=== PATIENT | female | born 1980 | race African-American/Black ===

== ENCOUNTER 2021-09-22 07:52 | Emergency (ER) | payer OTHER, SELFPAY ==
--- NOTE | ~2021-09-22 | XR_ITS ---
EXAMINATION: XR KNEE, LEFT CLINICAL INFORMATION: Pain after trauma COMPARISON: None TECHNIQUE: Four views of the left knee. FINDINGS: No fracture, dislocation or destructive process. No joint effusion. XR/XR knee LT 4V IMPRESSION: Unremarkable examination. No fracture seen.
[2021-09-22 08:30] VITALS: BP 119/76; PULSE 83; RESP 18; TEMP 36.1; O2SAT 97; BMI 27.4
--- NOTE | 2021-09-22 10:19 | ED_ITS ---
HPI - Extremity Injury (Lower) General Chief Complaint: Extremity Injury, Lower Stated Complaint: broken leg? Time Seen by Provider: 09/22/21 10:18 History of Present Illness HPI Narrative: Patient complains of left knee pain after falling and banging it on something as well as twisting it yesterday, no other injury no other complaint Related Data Previous Rx's Medication Instructions Recorded acetaminophen 500 mg tablet 1,000 mg PO QID PRN #30 tab 09/22/21 ibuprofen 600 mg tablet 600 mg PO Q6H PRN #20 tab 09/22/21 oxycodone 5 mg tablet 5 mg PO Q6H PRN #14 tab 09/22/21 Allergies Allergy/AdvReac Type Severity Reaction Status Date / Time No Known Allergies Allergy Verified 09/22/21 08:49 Review of Systems Review of Systems: Positive for left knee pain Negatives are no headache no head injury no loss of consciousness no neck pain no numbness weakness or tingling no back pain no shortness of breath no abdominal pain no other extremity pains Yes all other systems are reviewed and are negative PMFSH Past Medical History Source: nursing notes reviewed Physical Exam Vital Signs: Vital Signs: Last Vital Signs Temp 97 F 09/22/21 08:30 Pulse 83 09/22/21 08:30 Resp 18 09/22/21 08:30 BP 119/76 09/22/21 08:30 Pulse Ox 97 09/22/21 08:30 BMI result Body Mass Index 27.4 General appearance no acute distress Head is normocephalic atraumatic Neck is supple nontender Chest wall nontender Extremities the left knee had tenderness just below the patella the patient could not extend the lower leg There was no tenderness over the quadriceps tendon, there was mild swelling and neurovascular intact distal with normal skin Other extremities normal Course Course Course Narrative: Patient was unable to do a straight leg raise, there was no obvious defect of quadriceps or patellar tendons, but there was tenderness over the patellar tendon Multiple efforts to get her to lift leg were not successful but she also was in a lot of pain at a not clear if there was a tendon injury or was just too painful I called orthopedic physician career services assistant miki who said she can see her early next week for re-evaluation so she will follow with orthopedics next week Discharge Plan Discharge Clinical Impression: Patellar tendon rupture, Left knee sprain Patient Disposition: Home, Self-Care Additional Instructions: Because you could not do a straight leg raise and had tenderness over your patellar tendon there is a possibility that you tore the patellar tendon I spoke with orthopedic physician career services assistant Miki who said she would see you ne xt week Wear the knee immobilizer and crutches Return any time any concerns Prescriptions: New ibuprofen 600 mg tablet 600 mg PO Q6H PRN (Reason: pain) Qty: 20 RF: 0 acetaminophen 500 mg tablet 1,000 mg PO QID PRN (Reason: pain) Qty: 30 RF: 0 oxycodone 5 mg tablet 5 mg PO Q6H PRN (Reason: pain) Qty: 14 RF: 0 Referrals: Alisson Livingston PA-C [Physician Sales And Marketing Administrator] - 5 days (Question patellar tendon injury) Interventions: ED Discharge Assessment Last Done: 09/22/21 10:39 Discharge Date/Time: 09/22/21 10:40
== END 2021-09-22 10:40 | disposition home or self-care (01) ==
PROVIDERS: Emergency Provider Emergency Medicine
DX: S86.912A Strain of unspecified muscle(s) and tendon(s) at lower leg level, left leg, initial encounter (principal); X50.1XXA Overexertion from prolonged static or awkward postures, initial encounter; Y93.9 Activity, unspecified; Y92.9 Unspecified place or not applicable; Y99.9 Unspecified external cause status
CPT/HCPCS: 73564; 99283

== ENCOUNTER → 2021-09-27 11:00 | Outpatient (BNVA) | payer OTHER, SELFPAY | PROVIDERS: Visit Provider Physician Assistant | DX: M23.92 Unspecified internal derangement of left knee (principal) | CPT/HCPCS: 99202 ==

== ENCOUNTER 2021-10-06 19:43 | Outpatient (REF) | payer OTHER, SELFPAY ==
--- NOTE | ~2021-10-06 | MR_ITS ---
EXAMINATION: MR KNEE WITHOUT CONTRAST, LEFT CLINICAL INFORMATION: Knee pain, osteoarthritis COMPARISON: Radiographs 09/22/2021 TECHNIQUE: MRI of the knee without contrast was performed using routine sequences on a high-field scanner. FINDINGS: MENISCI: Medial Meniscus: Intact Lateral Meniscus: No meniscal tear. There is tearing of the inferior popliteomeniscal fascicle. LIGAMENTS: Cruciate: Complete or near complete tear of the proximal ACL with torn fibers displaced anteriorly. The posterior cruciate ligament is intact. Collateral: Intact EXTENSOR MECHANISM: Intact ARTICULAR CARTILAGE/BONE: Patellofemoral Compartment: Focal cartilage signal heterogeneity and surface irregularity of the medial patellar facet. Medial Compartment: Articular cartilage defect. Mild bone bruises at the posterior most tibia and peripheral aspect of the femoral condyle medially. Lateral Compartment: There is an impaction fracture of the tibia posteriorly with irregularity and small focal defect of the overlying articular cartilage. JOINT FLUID AND BURSAE: Moderate hemarthrosis. MR/MR knee LT wo con IMPRESSION: Complete or near complete proximal ACL tear. Impaction fracture of the lateral tibial plateau and a moderate hemarthrosis. No meniscal tear.
== END 2021-10-06 19:44 | disposition home or self-care (01) ==
LOC: HO.MRI 19:43
PROVIDERS: Visit Provider Physician Assistant
DX: M17.12 Unilateral primary osteoarthritis, left knee (principal)
CPT/HCPCS: 73721

== ENCOUNTER 2021-10-20 07:50 | Emergency (ER) | payer OTHER, SELFPAY ==
--- NOTE | ~2021-10-20 | XR_ITS ---
EXAMINATION: CR X-RAY KNEE/TIBIA/FIBULA LEFT CLINICAL INFORMATION: Left knee pain status post injury, ACL tear. COMPARISON: MRI of the left knee dated 10/06/2021, left knee radiographs dated 09/22/2011. TECHNIQUE: 4 views of the left knee and 2 views of the left tibia/fibula were obtained. FINDINGS: No significant tricompartmental degenerative joint changes are seen. There is no acute fracture. The tibia and fibula are intact. The left ankle joint is intact. There is a small to moderate suprapatellar joint effusion. The soft tissues are unremarkable. XR/XR knee LT 4V IMPRESSION: 1. No acute fracture or significant degenerative changes. 2. Small to moderate suprapatellar effusion has increased since the previous left knee radiographs but is similar to the more recent MRI.
--- NOTE | ~2021-10-20 | XR_ITS ---
EXAMINATION: CR X-RAY KNEE/TIBIA/FIBULA LEFT CLINICAL INFORMATION: Left knee pain status post injury, ACL tear. COMPARISON: MRI of the left knee dated 10/06/2021, left knee radiographs dated 09/22/2011. TECHNIQUE: 4 views of the left knee and 2 views of the left tibia/fibula were obtained. FINDINGS: No significant tricompartmental degenerative joint changes are seen. There is no acute fracture. The tibia and fibula are intact. The left ankle joint is intact. There is a small to moderate suprapatellar joint effusion. The soft tissues are unremarkable. XR/XR tibia fibula LT 2V IMPRESSION: 1. No acute fracture or significant degenerative changes. 2. Small to moderate suprapatellar effusion has increased since the previous left knee radiographs but is similar to the more recent MRI.
[2021-10-20 07:52] VITALS: BP 115/77; PULSE 82; RESP 16; TEMP 37.1; O2SAT 100; BMI 27.1
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
[2021-10-20] MEDS: oxyCODONE HCl Immed Release 5 MG TABLET PO (08:36)
[2021-10-20] MEDS: Ibuprofen 600 MG TABLET PO (08:36)
--- NOTE | 2021-10-20 08:39 | PC.NURSE ---
PT EVALUATED BY PROVIDER. XRAYS COMPLETED. PT TEARFUL, C/O 10/10 KNEE PAIN. MEDICATED WITH MOTRIN AND OXYCODONE FOR PAIN. PT AWARE AND AGREEABLE TO PLAN OF CARE.
[2021-10-20] MEDS: Acetaminophen 325 MG TABLET 975 MG PO (09:54)
== END 2021-10-20 10:04 | disposition home or self-care (01) ==
PROVIDERS: Emergency Provider Emergency Medicine
DX: M23.92 Unspecified internal derangement of left knee (principal); M25.462 Effusion, left knee; S83.512D Sprain of anterior cruciate ligament of left knee, subsequent encounter; X58.XXXD Exposure to other specified factors, subsequent encounter
CPT/HCPCS: 73564; 73590; 99284

== ENCOUNTER → 2021-10-22 09:44 | Outpatient (BNVA) | payer OTHER, SELFPAY | PROVIDERS: Visit Provider Physician Assistant | DX: S83.512D Sprain of anterior cruciate ligament of left knee, subsequent encounter (principal) | CPT/HCPCS: 99212 ==

== ENCOUNTER → 2021-11-17 12:54 | Outpatient (BNVA) | payer OTHER, SELFPAY | PROVIDERS: Visit Provider Physician Assistant | DX: S83.512D Sprain of anterior cruciate ligament of left knee, subsequent encounter (principal) | CPT/HCPCS: 99212 ==

== ENCOUNTER → 2021-12-09 12:36 | Outpatient (BNVA) | payer OTHER, SELFPAY | PROVIDERS: PCP Family Medicine; Visit Provider Physician Assistant | DX: Z01.818 Encounter for other preprocedural examination (principal); S83.512A Sprain of anterior cruciate ligament of left knee, initial encounter | CPT/HCPCS: 99212 ==

== ENCOUNTER 2021-12-14 11:46 | Day surgery (SDC) | payer OTHER, SELFPAY ==
[2021-12-09 11:26] VITALS: BMI 26.6
--- NOTE | 2021-12-13 10:27 | P.CONAN_ITS ---
Documented by User: Grecia Avery NP 12/13/21 10:27 HPI - Anesthesia Eval Consult details Narrative: 41yo F for Left ACL Allograft PMFSH Active Problems Active Problems: All Active Problems (Updated 10/20/21 @ 09:42 by Oly Bo CNP) Internal derangement of left knee (Acute) Left ACL tear (Acute) Past Medical History Medical History Anxiety Asthma Surgical History Surgical History Hx of cholecystectomy Social History Social History (Updated 12/09/21 @ 12:46 by Kalani Rowe CMA) Are you a primary child care worker to a significant other at home: No Do you presently have visiting nurse or other home services: No Patient Tobacco Use Status: Never used Tobacco Use of substances other than those prescribed or required for medical reasons: Yes Substance Use Type: Marijuana Substance Use Frequency: Daily Have you been hit, kicked, punched, or otherwise hurt by someone within the past year? 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 Allergies Allergy/AdvReac Type Severity Reaction Status Date / Time No Known Allergies Allergy Verified 12/09/21 12:45 Home Medications Medication Instructions Recorded Confirmed Last Taken Type albuterol sulfate 90 mcg/actuation 1 puff PO Q4H PRN 12/09/21 12/09/21 Unknown History aerosol inhaler (ProAir HFA) fluoxetine 20 mg capsule 2 cap PO DAILY 12/09/21 12/09/21 Unknown History trazodone 50 mg tablet 1 tab PO BEDTIME 12/09/21 12/09/21 Unknown History Exam Exam Date and Time: December 13, 2021 1027 Height,Weight and Vital Signs: Height 5 ft 4 in Weight 70.307 kg Assessment and Plan Assessment Anesthesia Assessment: Chart Reviewed Documented by User: Blaze Grayson MD 12/14/21 15:04 [facility] Past Medical History Medical History Anxiety Asthma Family History Family history of problems with anesthesia: No Surgical History Surgical History Hx of cholecystectomy History of Problems with Anesthesia: No Social History Social History (Updated 12/09/21 @ 12:46 by Kalani Rowe CMA) Are you a primary child care worker to a significant other at home: No Do you presently have visiting nurse or other home services: No Patient Tobacco Use Status: Never used Tobacco Use of substances other than those prescribed or required for medical reasons: Yes Substance Use Type: Marijuana Substance Use Frequency: Daily Have you been hit, kicked, punched, or otherwise hurt by someone within the past year? 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 Allergies Allergy/AdvReac Type Severity Reaction Status Date / Time No Known Allergies Allergy Verified 12/09/21 12:45 Home Medications Medication Instructions Recorded Confirmed Last Taken Type albuterol sulfate 90 mcg/actuation 1 puff PO Q4H PRN 12/09/21 12/09/21 Unknown History aerosol inhaler (ProAir HFA) fluoxetine 20 mg capsule 2 cap PO DAILY 12/09/21 12/09/21 Unknown History trazodone 50 mg tablet 1 tab PO BEDTIME 12/09/21 12/09/21 Unknown History Exam Airway Mallampati Class: II TM Dist: >3cm Neck ROM: Full Loose/Missing/Broken Teeth: Yes Assessment and Plan Assessment Anesthesia Assessment: Anesthesia Plan Discussed Final Anesthetic Review Family History of Problems with Anesthesia: No History of Problems with Anesthesia: No NPO: Yes ASA Class: II Final Preanesthetic Review: No Changes in Pt Med Stat, Meds/Allgs Chart Reviewed, Consent Obtained/Reviewed and Anes Risks/Benef Reviewed Patient Risk: Low Procedure Risk: Low Anesthetic Plan Anesthetic Plan: GA and Regional Block Disposition: Standard PACU
[2021-12-14] VITALS (19 sets, daily range): BP systolic 113–146; BP diastolic 71–90; PULSE 64–104; RESP 7–18; TEMP 36.3–36.6; O2SAT 94–99
--- NOTE | 2021-12-14 07:50 | MHC.SHP ---
Pre-Procedural Eval Section A Date of Service: 12/14/21 The patient is an INPATIENT: No Changes since office visit: Yes Patient answered all questions; No Cold of Flu in the past 2 weeks, No New Medical Problems and No Changes in Medication The History & Physical has been completed within 30 days and I have reviewed it.: Yes Section B Chief Complaint: sprained knee Allergies: Allergies Allergy/AdvReac Type Severity Reaction Status Date / Time No Known Allergies Allergy Verified 12/09/21 12:45 Plan I have reviewed the history and physical and performed a pertinent physical examination on my patient. No changes have occurred unless specified.
[2021-12-14 12:22] LABS: UPreg QC Valid YES; Urine Pregnancy NEGATIVE (NEGATIVE)
[2021-12-14] MEDS: Lactated Ringers 1,000 ML 100 ML IVCONT (12:25)
--- NOTE | 2021-12-14 14:37 | P.BOP_ITS ---
Brief Operative Note Date of Service: 12/14/21 Pre-op diagnosis: Left ACL tear Post-op diagnosis: same Procedure: Left ACL reconstruction with Allograft Implants: [employer]igsby [employer]hew ACL endobutton and 10 mmx 25 mm tibial interference screw and 10mm Hamstring Allograft Surgeon: Christ Mckeon MD Anesthesia: GETA and regional Was an Airline Reservation Agent used for this Procedure?: Yes Airline Reservation Agent: Alisson Livingston Estimated blood loss (mL): 25 Tourniquet time (min): 65 IV fluids (mL): 1,000 Pathology: none sent Condition: stable Disposition: PACU
[2021-12-14] MEDS: HYDROmorphone HCl 0.5 MG/0.5 ML SYRINGE 0.25 MG IVPUSH ×3 (15:35→16:02)
[2021-12-14] MEDS: oxyCODONE HCl Immed Release 5 MG TABLET PO (15:37)
[2021-12-14] MEDS: ondansetron HCL 4 MG/2 ML VIAL IVPUSH (18:02)
--- NOTE | 2021-12-14 18:03 | PC.NURSE ---
upon dressing and transferring to wheelchair patient reports nausea. ivf reinitiated. medicated for nausea.
--- NOTE | 2021-12-22 07:49 | W.PM.OPN ---
Operative Note Operative Note Date of Service: 12/15/21 Narrative: Pre-op diagnosis: Left ACL tear Post-op diagnosis: same Procedure: Left ACL reconstruction with Allograft Implants: Grigsby [employer] Nephew ACL endobutton and 10 mmx 25 mm tibial interference screw and 10mm Hamstring Allograft Surgeon: Christ Mckeon MD Anesthesia: GETA and regional Was an Operations Support Analyst used for this Procedure?: Yes Operations Support Analyst: Alisson Livingston Estimated blood loss (mL): 25 Tourniquet time (min): 65 IV fluids (mL): 1,000 Pathology: none sent Condition: stable Disposition: PACU Procedure in detail: Patient was brought to the operating room placed supine on the arthroscopic table and prepped and draped in standard sterile fashion. A time-out was called to identify proper site proper procedure proper surgeon and IV antibiotics per weight were administered. She has a 2+ Frank's and a + pivot shift. I began by exsanguinating the limb and insufflating tourniquet to 300 mm Hg. Then made a standard anterolateral stab incision. The knee was insufflated with water and 30 degree arthroscope was placed. There was grade 1 fibrillations of the patella but overall suprapatellar pouch was clean and the gutters were clean. I descended into the medial compartment where I made a far medial portal under direct visualization. There was an intact medial meniscus and the cartilage surfaces were normal. There was a complete tear of the ACL with an empty wall sign. The lateral meniscus and cartilage surfaces were normal. I used a combination of biter shaver and cautery to remove the ACL stump. On the back table the hamstring allograft was prepared, placed on tension for 10 minutes and measured to be 10 mm. During the graft preparation I identified the ACL footprint and , via the medial portal drilled my femoral tunnel approximately 7 mm from the back wall and 5 mm from the distal articular surface. I started wtih a guide wire, then a 10 mm reamer unicortically then a 4 mm drill through the lateral femroal cortex. I then drilled my tibial tunnel through the tibial footprint at a 55deg angle from an incision just medial to the tibial tubercle. My graft was then passed through the tibia and femur. The endobutton was flipped on the lateral femoral cortex. The knee was then cycled on tension and then, in hyper-extension, the tibial interference screw was placed. I was satisfied with the graft position and the tension and stability of the knee. There was a negative pivot shift. I then removed all instrumentation and closed the portals with skin glue. Patient was then placed in sterile dressing, a hinged knee brace locked in extension and then extubated brought recovery room stable condition. There were no known complications.
--- NOTE | 2021-12-24 15:51 | P.OP_ITS ---
Operative Note Operative Note Date of Service: 12/24/21 Narrative: Date of Service: 12/14/21 Pre-op diagnosis: Left ACL tear Post-op diagnosis: same Procedure: Left ACL reconstruction with Allograft Implants: Grigsby [employer] Nephew ACL endobutton and 10 mmx 25 mm tibial interference screw and 1 0mm Hamstring Allograft Surgeon: Christ Mckeon MD Anesthesia: GETA and regional Was an Line Technician used for this Procedure?: Yes Line Technician: Alisson Livingston Estimated blood loss (mL): 25 Tourniquet time (min): 65 IV fluids (mL): 1,000 Pathology: none sent Condition: stable Disposition: PACU
== END 2021-12-14 19:13 | disposition home or self-care (01) ==
PROVIDERS: Nurse Practitioner; Visit Provider Orthopaedic Surgery
PROC: (CPT 27428; principal; 2021-12-14 13:50)
DX: S83.512A Sprain of anterior cruciate ligament of left knee, initial encounter (principal); M25.362 Other instability, left knee; M25.462 Effusion, left knee; X58.XXXA Exposure to other specified factors, initial encounter; Y93.9 Activity, unspecified; Y92.9 Unspecified place or not applicable; Y99.8 Other external cause status; J45.909 Unspecified asthma, uncomplicated; F41.1 Generalized anxiety disorder; Z79.899 Other long term (current) drug therapy; F12.90 Cannabis use, unspecified, uncomplicated
CPT/HCPCS: 29888; 81025; C1713; C1769; J0131; J0171; J0690; J1100; J1170; J1790; J1885; J2250; J2405; J2550; J3010

== ENCOUNTER → 2021-12-20 10:34 | Outpatient (BNVA) | payer OTHER, SELFPAY | PROVIDERS: Visit Provider Physician Assistant | DX: S83.512D Sprain of anterior cruciate ligament of left knee, subsequent encounter (principal) | CPT/HCPCS: 99212 ==

== ENCOUNTER 2022-01-14 09:00 | Outpatient (RCR) | payer OTHER, SELFPAY ==
--- NOTE | 2021-12-20 14:02 | MHC.PT.EP ---
[facility] [place] [facility] [place] Office [place] Office [address] [phone] F: [phone] F: [phone] F: [phone] F: [phone] Physical Therapy Plan of Care Date of Evaluation: Date of Surgery: 12/14/21 Diagnosis: L ACL RECONSTRUCTION (KP) Assessment: DONALD IS A PLEASANT 41 YO FEMALE S/P ACL REPAIR WITH HAMSTRING ALLOGRAPH (DOS #5). SHE PRESENTS WITH EXPECTED IMPAIRMENTS OF DECREASED KNEE ROM AND STRENGTH, INCREASED EDEMA AND PAIN, ALTERED GAIT AND BALANCE. FUNCTIONAL LIMITATIONS INCLUDE DECREASED ABILITY TO PERFORM WALKING, STATIC STANDING, STAIR NAVIGATION. SHE REPORTS DECREASED ABILITY TO PERFORM SQUATTING, LIFTING FROM GROUND, WALKING ON UNEVEN SURFACES, PARTICIPATING IN HOMEMAKING AND SELF CARE TASKS, PARTICIPATING IN COMMUNITY AND RECREATIONAL ACTIVITIES AND DISRUPTED SLEEP. Pt IS A GOOD CANDIDATE FOR SKILLED PT DUE TO AGE, POTENTIAL REMEDIATION OF IMPAIRMENTS, TYPICAL DISEASE/CONDITION PROGRESSION AND PROGNOSIS, COMORBIDITIES, AND MOTIVATION. Pt WOULD BENEFIT FROM TAILORED PROGRAM OF THERAPEUTIC ACTIVITIES, FUNCTIONAL TRAINING, GAIT TRAINING, POSTURAL EDUCATION, NEUROMUSCULAR RE-EDUCATION, AND MODALITIES NEEDED. 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 Manual therapy to restore motion and function. Therapeutic exercise to improve strength and flexibility. Neuromuscular re-education for posture and balance. Therapeutic activities to return to functional activities of daily living. Electronically signed by: LUIS RECIO PT, DPT Please sign and return to therapist. Thank you for your referral.
--- NOTE | 2022-02-18 08:36 | MHC.PT.DC ---
[facility] [place] Office [place] Office [place] Office [address]ma [address] 140 [facility] [phone] F: [phone] F: [phone] F: [phone] F: [phone] Physical Therapy Discharge Report Diagnosis: L ACL RECONSTRUCTION (KP) Date of Surgery: 12/14/21 Date of Evaluation: 12/20/21 Date of Discharge: 02/18/22 Treatments to Date: 5 Cancellations to Date: 0 No Shows to Date: 0 Discharge Status: Patient Elected to Stop Visit Non-compliance Discharge Summary: Pt no showed for last scheduled visit, did not return voicemail messages. Current status unknown. As we have not heard from her in over 30 days we are DCing at this time from our surface. Electronically signed by: Dulce Fisher PT, DPT Please sign and return to therapist. Thank you for your referral.
== END 2022-02-18 08:37 | disposition home or self-care (01) ==
LOC: HO.PT 09:00
PROVIDERS: Visit Provider Physician Assistant
DX: S83.512D Sprain of anterior cruciate ligament of left knee, subsequent encounter (principal)
CPT/HCPCS: 97110; 97112; 97161

== ENCOUNTER → 2022-01-17 09:31 | Outpatient (BNVA) | payer OTHER, SELFPAY | PROVIDERS: Visit Provider Physician Assistant | DX: S83.512D Sprain of anterior cruciate ligament of left knee, subsequent encounter (principal) | CPT/HCPCS: 99212 ==

== ENCOUNTER 2022-08-22 11:26 | Emergency (ER) | payer OTHER, SELFPAY ==
--- NOTE | ~2022-08-22 | XR_ITS ---
EXAMINATION: XR CHEST CLINICAL INFORMATION: Cough. COMPARISON: None TECHNIQUE: 2 views of the chest were obtained. FINDINGS: No significant abnormality is noted involving the heart, lungs, mediastinum, bony thorax or soft tissues. XR/XR chest 2V IMPRESSION: No acute cardiopulmonary process.
--- NOTE | 2022-08-22 12:41 | ED_ITS ---
HPI - General Adult General Chief complaint: Nausea/Vomiting/Diarrhea Stated complaint: Fever/Diarrhea Related Data Home Medications Medication Instructions Recorded Confirmed albuterol sulfate 90 mcg/actuation 1 puff PO Q4H PRN wheezing 12/09/21 12/09/21 aerosol inhaler (ProAir HFA) fluoxetine 20 mg capsule 2 cap PO DAILY 12/09/21 12/09/21 trazodone 50 mg tablet 1 tab PO BEDTIME 12/09/21 12/09/21 Previous Rx's Medication Instructions Recorded ibuprofen 600 mg tablet 600 mg PO TID PRN pain #20 tabs 10/20/21 morphine 15 mg tablet,extended 15 mg PO Q12H 3 days #6 tabs 12/14/21 release (MS Contin) naproxen 500 mg tablet 500 mg PO BID 3 weeks #42 tabs 12/14/21 oxycodone-acetaminophen 5 mg-325 1 tab PO Q4-6H PRN pain 7 days #42 12/14/21 mg tablet (Percocet) tabs hydrocodone 5 mg-acetaminophen 325 1 tab PO Q4-6H PRN pain 7 days #42 12/20/21 mg tablet tabs ondansetron HCl 4 mg tablet 4 mg PO Q6H PRN nausea and 12/20/21 vomiting 7 days #28 tabs Allergies Allergy/AdvReac Type Severity Reaction Status Date / Time No Known Allergies Allergy Verified 01/17/22 09:36 [facility] Past Medical History Medical History Anxiety Asthma Surgical History Hx of cholecystectomy Social History Social History Are you a primary customer care assistant to a significant other at home: No Do you presently have visiting nurse or other home services: No Patient Tobacco Use Status: Never used Tobacco Substance Use Type: Marijuana Advance Directives: No Current occupational status: employed 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 Reports fever of 100 at home. Also with cough and URI symptoms. Vaccinated for COVID and Flu. No known sick contacts. Low grade temp 99.4 here after tylenol at home. Other VSS. Will get basic labs, Flu and COVID. Reevaluation(s) Reevaluation #1: Patient eloped Discharge Plan Discharge Clinical Impression: Abdominal pain Patient Disposition: Elopement Prescriptions: No Action ibuprofen 600 mg tablet 600 mg PO TID PRN (Reason: pain) Qty: 20 0RF trazodone 50 mg tablet 1 tab PO BEDTIME albuterol sulfate [ProAir HFA] 90 mcg/actuation HFA aerosol inhaler 1 puff PO Q4H PRN (Reason: wheezing) fluoxetine 20 mg capsule 2 cap PO DAILY oxycodone-acetaminophen [Percocet] 5-325 mg tablet 1 tab PO Q4-6H PRN (Reason: pain) 7 Days Qty: 42 0RF morphine [MS Contin] 15 mg tablet extended release 15 mg PO Q12H 3 Days Qty: 6 0RF Rx Instructions: Partial Fill upon patient request naproxen 500 mg tablet 500 mg PO BID 21 Days Qty: 42 1RF ondansetron HCl 4 mg tablet 4 mg PO Q6H PRN (Reason: nausea and vomiting) 7 Days Qty: 28 0RF hydrocodone-acetaminophen 5-325 mg tablet 1 tab PO Q4-6H PRN (Reason: pain) 7 Days Qty: 42 0RF Rx Instructions: Partial Fill upon patient request. Interventions: LWBS Worksheet Last Done: 08/22/22 16:36 Discharge Date/Time: 08/22/22 22:20
[2022-08-22 12:43] VITALS: BP 108/82; PULSE 80; RESP 18; TEMP 37.4; O2SAT 96; BMI 26.5
== END 2022-08-22 22:20 | disposition left against medical advice (07) ==
PROVIDERS: Emergency Provider Emergency Medicine
DX: R10.9 Unspecified abdominal pain (principal); R50.9 Fever, unspecified; R05.9 Cough, unspecified
CPT/HCPCS: 71046; 99281; 99283

== ENCOUNTER → 2023-04-04 16:09 | Outpatient (RCR) | payer OTHER, SELFPAY ==
--- NOTE | 2021-11-05 12:40 | MHC.PT.EP ---
[facility] [place] [facility] [place] [facility] [place] [facility] [address] Vilma Monroy [address] [phone] F: [phone] F: [phone] F: [phone] F: [phone] Physical Therapy Plan of Care Date of Evaluation: Date of Surgery: NA Diagnosis: L ACL TEAR Assessment: Pt IS 41 YO F REFERRED TO PT FROM ORTHO ([facility]) WITH TORN L ACL AND TIBIAL PLATEAU FX. Pt REPORTS INIT INJURY 09/19/21 WITH SECONDARY FALL 10/19/21 WITH REPORT OF FURTHER PAIN/SWELLING . FU XRAY SHOWED NO CHANGES FROM INIT. NO SECONDARY MRI DONE (?FURTHER DAMAGE TO ACL OR OTHER STRUCTURES). PRESENTS WITH KNEE BRACE BUT NO CRUTCHES WITH ANTALGIC GT, LIMITED KNEE ROM AND LIMITED LE STRENGTH. Pt WITH PAIN AND FEELING OF INSTABILITY. SLIGHT SWELLING. Pt DID NOT GET TO PT IN TIMELY MANNER INITIALLY (SCHEDULING ISSUE) SO SHOULD BENEFIT FROM 3X/WK AT THIS TIME TO HELP IMPROVE ROM AND STRENGTH IN PREP FOR SURGERY INDICATED Frequency and Duration: The patient will be seen 3X/WK X 3 WKS THEN 2X/WK X 4-6 MORE WEEKS PER ORTHO FU Short Term Goals: 1. INCREASED AWARENESS KNEE CARE 2. IMPROVED GT PATTERN WITH BRACE AND 2 CRUTCHES>1CRUTCH>NO AD 3. INCREASED L KNEE ROM 0-100 4. ABLE TO PERF SLR 20 R ON L Sub Plant Manager Goals: 1. DECREASED L KNEE PAIN AT LEAST 50% WITH ADLS 2. I HEP 3. INCREASED L KNEE ROM 0-125 4. L LE STRENGTH 4/5 T/O Treatment Plan: Modalities to reduce pain, spasms and effusion. Manual therapy to restore motion and function. Therapeutic exercise to improve strength and flexibility. Neuromuscular re-education for posture and balance. Therapeutic activities to return to functional activities of daily living. Electronically signed by: NAIMA MIRANDA PT Please sign and return to therapist. Thank you for your referral.
--- NOTE | 2023-04-04 16:09 | MHC.PT.DC ---
[facility] [place] Office [place] Office [place] Office [address]ma [address] 140 [facility] [phone] F: [phone] F: [phone] F: [phone] F: [phone] Physical Therapy Discharge Report Diagnosis: L ACL TEAR Date of Surgery: NA Date of Evaluation: 11/05/21 Date of Discharge: 04/04/23 Treatments to Date: 9 Cancellations to Date: No Shows to Date: Discharge Status: Achieved Goals Independent with HEP Discharge Summary: Pt to return after ACL surgery Electronically signed by: NAIMA MIRANDA PT Please sign and return to therapist. Thank you for your referral.
== END | disposition home or self-care (01) ==
LOC: HO.PT 11-05 07:51
PROVIDERS: Visit Provider Physician Assistant
DX: S83.512D Sprain of anterior cruciate ligament of left knee, subsequent encounter (principal)
CPT/HCPCS: 97110; 97116; 97140; 97162; 97530; 97535

== ENCOUNTER 2023-10-29 08:19 | Emergency (ER) | payer OTHER, SELFPAY ==
--- NOTE | ~2023-10-29 | XR_ITS ---
EXAMINATION: XR FOOT, RIGHT XR FOOT, LEFT CLINICAL INFORMATION: Bilateral toe pain, redness, and swelling. COMPARISON: None. TECHNIQUE: AP, oblique, and lateral views of the right and left foot. FINDINGS: Right foot: No acute fracture or dislocation. No joint space narrowing or marginal osteophytes. No osseous erosion. No abnormal soft tissue calcification. Left foot: No acute fracture or dislocation. No joint space narrowing or marginal osteophytes. No osseous erosion. No abnormal soft tissue calcification. XR/XR foot LT min 3V IMPRESSION: RIGHT FOOT: Unremarkable examination. LEFT FOOT: Unremarkable examination.
--- NOTE | ~2023-10-29 | XR_ITS ---
EXAMINATION: XR FOOT, RIGHT XR FOOT, LEFT CLINICAL INFORMATION: Bilateral toe pain, redness, and swelling. COMPARISON: None. TECHNIQUE: AP, oblique, and lateral views of the right and left foot. FINDINGS: Right foot: No acute fracture or dislocation. No joint space narrowing or marginal osteophytes. No osseous erosion. No abnormal soft tissue calcification. Left foot: No acute fracture or dislocation. No joint space narrowing or marginal osteophytes. No osseous erosion. No abnormal soft tissue calcification. XR/XR foot RT min 3V IMPRESSION: RIGHT FOOT: Unremarkable examination. LEFT FOOT: Unremarkable examination.
[2023-10-29 08:21] VITALS: BP 145/90; PULSE 105; RESP 16; TEMP 36.4; O2SAT 98; BMI 23.5
[2023-10-29 08:52] LABS: MANUAL DIFF FLAG NO
[2023-10-29 08:53] LABS: Basophils Percent Auto 0.3 % (0-2); Eosinophils Percent Auto 0.1 % (0-4); Hemoglobin 11.5 g/dl (12.0-16.0); Imm Gran Abs Auto 0.02 X10*3/uL (0.00-0.03); Imm Gran Pct Auto 0.2 % (0.0-0.4); Lymphocytes Percent Auto 25.4 % (20-40); Mean Corpuscular HGB Conc 32.9 g/dl (31.0-35.0); Mean Corpuscular Hemoglobin 27.4 pg (27.0-33.0); Mean Corpuscular Volume 83.5 fL (80.0-98.0); Mean Platelet Volume 9.1 fL (9.4-12.3); Monocytes Absolute Auto 0.7 X10*3/uL (0.1-1.2); Neutrophils Absolute Auto 7.9 x10*3/uL (2.0-8.3); Platelet Count 255 X10*3/uL (160-400); Red Blood Count 4.19 X10*6/uL (4.20-5.50); Red Cell Distribution Width 13.9 % (11.0-16.0); White Blood Count 11.6 X10*3/uL (4.8-10.8)
[2023-10-29 09:11] LABS: Anion Gap 11 (12-20); Blood Urea Nitrogen 16 mg/dL (9-16); Calcium 9.3 mg/dL (8.4-10.2); Carbon Dioxide 30 mmol/L (22-29); Chloride 103 mmol/L (96-108); Creatinine Clr Calc Pharmacy 72.6; Estimated Glomerular Filt Rate > 60; Glucose Random 100 mg/dL (60-115); Potassium 3.3 mmol/L (3.3-5.1); Sodium 141 mmol/L (135-145)
[2023-10-29 09:13] LABS: Uric Acid 4.1 mg/dL (2.4-5.7)
--- NOTE | 2023-10-29 09:34 | ED_ITS ---
HPI - Extremity Problem General Chief complaint: Extremity Problem Stated complaint: Pain in toes Time Seen by Provider: 10/29/23 09:01 Source: patient Mode of arrival: ambulatory Limitations: no limitations History of Present Illness HPI Narrative: 43 year old female with pmhx significant for psoriasis and psoriatic arthritis presents to the ED today for evaluation of atraumatic toe pain x1 day. Reports onset of pain to all 10 toes beginning yesterday. Denies trauma or injury to the toes/feet. Admits that this has happened in the past however has never been bad enough to come to the ED. She has not been taking any OTC medications for this at home. Patient admits she has a history of psoriatic arthritis. States she stopped taking her medications months ago because I don't want to take all those medications . She has not followed up with her PCP or jinriksha driver regarding this. Denies fever, chills, dizziness, N/V, diarrhea, rash, other joint pain. Denies IVDU. Denies hx of diabetes. Related Data Home Medications Medication Instructions Recorded Confirmed albuterol sulfate 90 mcg/actuation 1 puff PO Q4H PRN wheezing 12/09/21 12/09/21 aerosol inhaler (ProAir HFA) fluoxetine 20 mg capsule 2 cap PO DAILY 12/09/21 12/09/21 trazodone 50 mg tablet 1 tab PO BEDTIME 12/09/21 12/09/21 Previous Rx's Medication Instructions Recorded ibuprofen 600 mg tablet 600 mg PO TID PRN pain #20 tabs 10/20/21 morphine 15 mg tablet,extended 15 mg PO Q12H 3 days #6 tabs 12/14/21 release (MS Contin) naproxen 500 mg tablet 500 mg PO BID 3 weeks #42 tabs 12/14/21 oxycodone-acetaminophen 5 mg-325 1 tab PO Q4-6H PRN pain 7 days #42 12/14/21 mg tablet (Percocet) tabs hydrocodone 5 mg-acetaminophen 325 1 tab PO Q4-6H PRN pain 7 days #42 12/20/21 mg tablet tabs ondansetron HCl 4 mg tablet 4 mg PO Q6H PRN nausea and 12/20/21 vomiting 7 days #28 tabs naproxen 500 mg tablet 500 mg PO Q8-12H PRN pain (scale 10/29/23 score 4-6) #20 tabs oxycodone 5 mg capsule 5 mg PO Q8H PRN pain (scale score 10/29/23 7-10) #4 caps prednisone 50 mg tablet 50 mg PO DAILY 5 days #5 tabs 10/29/23 Allergies Allergy/AdvReac Type Severity Reaction Status Date / Time No Known Allergies Allergy Verified 01/17/22 09:36 Review of Systems 2 Review of Systems: Constitutional: No fever, chills, fatigue, night sweats, weight changes ENT/Mouth: No ear pain, hearing loss, nasal congestion, sinus pain, rhinorrhea, sore throat Eyes: No eye pain, swelling, redness, vision changes, discharge Cardio: No chest pain, palpitations, GORDON, orthopnea, peripheral edema Pulm: No SOB, cough, sputum, wheezing, dyspnea, hemoptysis GI: No nausea, vomiting, hematemesis, abdominal pain, diarrhea, constipation, hematochezia, melena : No irregular bleeding, dysuria, frequency, urgency, hesitancy, hematuria, flank pain, urinary flow changes, urinary incontinence or retention MSK: No neck pain, joint pain, myalgias, +toe pain Skin: No lesions, rashes Neuro: No weakness, numbness, paresthesias, LOC, dizziness, headache All other systems reviewed and are negative. [facility] Past Medical History Attestation statement: The following information was validated with the patient. Source: old records reviewed and nursing notes reviewed Medical History Anxiety Asthma Surgical History Hx of cholecystectomy Social History Social History Are you a primary child care leader to a significant other at home: No Do you presently have visiting nurse or other home services: No Alcohol intake: current Alcohol intake frequency: holidays/special occasions only Patient Tobacco Use Status: Never used Tobacco Smoked in Last 30 Days: No Use of substances other than those prescribed or required for medical reasons: No Substance Use Type: Marijuana Advance Directives: No Advance Directives Information Provided: No Patient : No Current occupational status: employed 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 General: cooperative, alert, awake and Physically active O rientation/consciousness: patient oriented x3 Limitations: no limitations HEENT: Head: Yes normal to inspection, Yes normocephalic and Yes atraumatic Eyes: General: appearance normal, both eyes and all related structures P upils: Equal, round and reactive pupils present EOM: EOMs intact bilaterally Neck: Neck: Yes normal visual inspection, Yes full ROM and Yes no lymphadenopathy Resp: Effort & Inspection: normal respiratory effort and able to speak in complete sentences Auscultation: clear to auscultation bilaterally Cardio: Other: + 2+ pt/dp pulses Rate: regular rate Rhythm: regular rhythm Skin: Other: + refer to photos below General skin exam: no rashes or lesions noted Neuro: Other: Strength 5/5 intact throughout.?Sensation intact to light touch. Neurovascular intact distally.? General: patient oriented x3 and gait normal Cranial nerves: Yes Equal, round and reactive pupils present Gait exam (Neuro): Normal gait present Extrem: Other: + refer to photos below + no overlying skin changes. mild swelli ng to all 10 toes. full rom intact to toes, ankles. no palpable deformity or warmth. TTP of all toes. Course Course Course Narrative: 1220-- Slight leukocytosis to 11.6, no left shift. Sed rate wnl. Crp wnl. No acute electrolyte abnormalities requiring intervention. Uric acid wnl > unlikely gout. Rf factor elevated indicative of autoimmune process.?xrays negative for fracture or pathology. Exam consistent with psoriatic arthritis secondary to medication noncompliance. informed patient of work up results. had an in depth discussion with patient regarding the importance of psoriasis/ psoriatic arthritis management to prevent episodes like this. will send pain medication & steroid to pharmacy for pain control. I have provided her with rheumatology referral for follow up and advised her to follow up with her PCP. Patient has remained stable throughout ED visit today. Discussed worrisome signs and symptoms and when to return to the ED. All questions answered at this time. Patient is agreeable with disposition and stable for discharge. Medications Administered Discontinued Medications Generic Name Dose Route Start Last Admin Trade Name Luis PRN Reason Stop Dose Admin Ketorolac Tromethamine 60 mg 10/29/23 09:32 10/29/23 09:38 Ketorolac Tromethamine 60 Mg/2 Ml Vial IM 10/29/23 09:33 60 mg ONCE ONE Administration Methylprednisolone Sodium Succinate 60 mg 10/29/23 09:32 10/29/23 09:38 Methylprednisolone Sod Succ 125 Mg/2 Ml Vial IM 10/29/23 09:33 60 mg ONCE ONE Administration Morphine Sulfate 15 mg 10/29/23 11:03 10/29/23 11:17 Morphine Sulfate Immed Release 15 Mg Tablet PO 10/29/23 11:04 15 mg ONCE ONE Administration Ondansetron HCl 4 mg 10/29/23 11:10 10/29/23 11:17 Ondansetron Odt 4 Mg Tab.Rapdis TRANSLINGU 10/29/23 11:11 4 mg ONCE ONE Administration Medical Decision Making Medical Decision Making [facility] Narrative: 43 year old female with pmhx significant for psoriasis and psoriatic arthritis presents to the ED today for evaluation of atraumatic toe pain x1 day. Patient initially hypertensive and tachycardic as she was pacing around the room, rolling on the bed and sticking her feet in the air due to the discomfort in her toes. Afebrile, vitals otherwise wnl. please refer back to physical exam portion of note. Clinical concern for OA, RA, psoriatic arthritis. Lower suspicion for fracture, dislocation, gout, pseudo gout. Unlikely septic joint, DVT, NV compromise, threat to limb. XRs of b/l ordered prior to my initial evaluation of patient. will review results, plan for pain control, and re-eval. Differential Diagnosis Differential Diagnoses: The differential diagnosis associated with the presentation includes as above Admission/Observation Not indicated. Lab Data [facility] Lab Attestation statement: I reviewed the patient's lab results. as above. 10/29/23 08:48 10/29/23 08:48 Labs: Lab Results 10/29/23 10/29/23 Range/Units 08:48 11:56 WBC 11.6 H (4.8-10.8) X10*3/uL RBC 4.19 L (4.20-5.50) X10*6/uL Hgb 11.5 L (12.0-16.0) g/dl Hct 35.0 L (37.0-47.0) % MCV 83.5 (80.0-98.0) fL MCH 27.4 (27.0-33.0) pg MCHC 32.9 (31.0-35.0) g/dl RDW 13.9 (11.0-16.0) % Plt Count 255 (160-400) X10*3/uL MPV 9.1 L (9.4-12.3) fL Immature Gran % (Auto) 0.2 (0.0-0.4) % Neut % (Auto) 68.0 (45-73) % Lymph % (Auto) 25.4 (20-40) % Dukes % (Auto) 6.0 (2-11) % Eos % (Auto) 0.1 (0-4) % Baso % (Auto) 0.3 (0-2) % Lymph # (Auto) 3.0 (1.2-4.9) X10*3/uL Dukes # (Auto) 0.7 (0.1-1.2) X10*3/uL Eos # (Auto) 0.0 (0.0-0.4) X10*3/uL Baso # (Auto) 0.0 (0.0-0.2) X10*3/uL Abs Immat Gran (auto) 0.02 (0.00-0.03) X10*3/uL Absolute Neuts (auto) 7.9 (2.0-8.3) x10*3/uL Absolute Nucleated RBC 0.000 (0.0-0.012) X10*3/uL Nucleated RBC % (auto) 0.0 (0.0-0.2) /100WBC ESR 8 (0-20) MM/HR Sodium 141 (135-145) mmol/L Potassium 3.3 (3.3-5.1) mmol/L Chloride 103 (96-108) mmol/L Carbon Dioxide 30 H (22-29) mmol/L Anion Gap 11 L (12-20) BUN 16 (9-16) mg/dL Creatinine 0.79 (0.5-1.4) mg/dL Estim Creat Clear Calc 72.6 Estimated GFR > 60 Random Glucose 100 (60-115) mg/dL Uric Acid 4.1 (2.4-5.7) mg/dL Calcium 9.3 (8.4-10.2) mg/dL C-Reactive Protein 0.41 (< or = 0.50) mg/dL Rheumatoid Factor 35.4 H (<15.0) IU/mL Independent Interpretation I performed an independent interpretation of an: Plain X-Ray Interpretation: I have personally reviewed the patient's x-rays and agree with radiologist's interpretation. Radiology Impression Discussion of test interpretation with radiology: I have reviewed the radiologist's reading. Radiologist Impression: XR foot LT/RT min 3V IMPRESSION: RIGHT FOOT: Unremarkable examination. LEFT FOOT: Unremarkable examination. External Record Review External record reviewed: Inpatient record Prescription Management I considered prescription management with: Pain Medication and Other (steroid) Chronic Conditions Patient?s care impacted by: Other (psoriasis, psoriatic arthritis) Social Determinants Patient?s care significantly limited by Social Determinants of Health including: Other Social Determinant of Health Critical Care Time Critical Care Time Critical Care Time: No Discharge Plan Discharge Clinical Impression: PA (psoriatic arthritis), Toe pain, bilateral Patient Disposition: Home, Self-Care Instructions: Arthralgia (ED) Additional Instructions: Your labs today are reassuring. The x-rays of both feet/toes are normal. You likely are having a psoriatic arthritis episode. Treatment for this includes NSAIDs. Naproxen as an NSAID that has been sent to your pharmacy. Take this as needed for pain/discomfort. Do not take this with other NSAIDs such as ibuprofen as it can increase risk of GI bleeding. Prednisone as a steroid that has been sent to your pharmacy. Take this for the next 5 days as prescribed. Oxycodone is a controlled pain medication. Four of these tablets have been sent to your pharmacy for you to take for severe pain. YOU NEED TO FOLLOW-UP WITH EITHER YOUR PCP OR A PREP PERSON FOR FURTHER MANAGEMENT OF PSORIATIC ARTHRITIS. A REFERRAL HAS BEEN GIVEN TO YOU. YOU MUST CALL THEM TO MAKE AN APPOINTMENT, THEY WILL NOT CALL YOU. If symptoms worsen please return to the ED. In the case of an emergency call 911. [facility] rheumatology [phone] Prescriptions: New prednisone 50 mg tablet 50 mg PO DAILY 5 Days Qty: 5 0RF naproxen 500 mg tablet 500 mg PO Q8-12H PRN (Reason: pain (scale score 4-6)) Qty: 20 0RF oxycodone 5 mg capsule 5 mg PO Q8H PRN (Reason: pain (scale score 7-10)) Qty: 4 0RF Rx Instructions: Partial Fill upon patient request. No Action ibuprofen 600 mg tablet 600 mg PO TID PRN (Reason: pain) Qty: 20 0RF trazodone 50 mg tablet 1 tab PO BEDTIME albuterol sulfate [ProAir HFA] 90 mcg/actuation HFA aerosol inhaler 1 puff PO Q4H PRN (Reason: wheezing) fluoxetine 20 mg capsule 2 cap PO DAILY oxycodone-acetaminophen [Percocet] 5-325 mg tablet 1 tab PO Q4-6H PRN (Reason: pain) 7 Days Qty: 42 0RF morphine [MS Contin] 15 mg tablet extended release 15 mg PO Q12H 3 Days Qty: 6 0RF Rx Instructions: Partial Fill upon patient request naproxen 500 mg tablet 500 mg PO BID 21 Days Qty: 42 1RF ondansetron HCl 4 mg tablet 4 mg PO Q6H PRN (Reason: nausea and vomiting) 7 Days Qty: 28 0RF hydrocodone-acetaminophen 5-325 mg tablet 1 tab PO Q4-6H PRN (Reason: pain) 7 Days Qty: 42 0RF Rx Instructions: Partial Fill upon patient request. Referrals: [facility]Provider Group] [facility] [Provider Group] [facility] Rheumatology Service [Provider Group] Interventions: ED Discharge Assessment Last Done: 10/29/23 12:33 Discharge Date/Time: 10/29/23 12:33
[2023-10-29] MEDS: methylPREDNISolone Sod Succ 125 MG/2 ML VIAL 60 MG IM (09:38)
[2023-10-29] MEDS: Ketorolac Tromethamine 60 MG/2 ML VIAL IM (09:38)
[2023-10-29 10:06] VITALS: BP 152/105; PULSE 86; RESP 20; TEMP 36.5; O2SAT 98
[2023-10-29] MEDS: Morphine Sulfate Immed Release 15 MG TABLET PO (11:17)
[2023-10-29] MEDS: Ondansetron ODT 4 MG TAB.RAPDIS TRANSLINGU (11:17)
[2023-10-29 12:03] LABS: C Reactive Protein 0.41 mg/dL (< or = 0.50)
[2023-10-29 12:18] LABS: Rheumatoid Factor 35.4 IU/mL (<15.0)
[2023-10-29 12:28] VITALS: BP 135/78; PULSE 83; RESP 18; O2SAT 99
[2023-10-29 12:33] LABS: Erythrocyte Sedimentation Rate 8 MM/HR (0-20)
== END 2023-10-29 12:33 | disposition home or self-care (01) ==
PROVIDERS: Physician Assistant Medical; Emergency Provider Student in an Organized Health Care Education/Training Program
DX: M79.675 Pain in left toe(s) (principal); M79.674 Pain in right toe(s); L40.59 Other psoriatic arthropathy; Z79.899 Other long term (current) drug therapy
CPT/HCPCS: 36415; 73630; 80048; 84550; 85025; 85652; 86140; 86431; 96372; 99284; J1885; J2930

== ENCOUNTER 2024-02-23 10:36 | Emergency (ER) | payer OTHER, SELFPAY ==
--- NOTE | ~2024-02-23 | XR_ITS ---
EXAMINATION: XR CHEST CLINICAL INFORMATION: Cough. COMPARISON: None available. TECHNIQUE: Frontal view of the chest was obtained. FINDINGS: The cardiac mediastinal silhouette is within normal limits. The lungs are well expanded. No consolidation or effusion. No pneumothorax. XR/XR chest 1V IMPRESSION: No focal pneumonia.
[2024-02-23 10:39] VITALS: BP 148/94; PULSE 105; RESP 22; TEMP 36.4; O2SAT 100; BMI 24.0
[2024-02-23 11:25] LABS: COVID-19 Test Negative (Negative); IDNOW Serial# 08D9AD1C
[2024-02-23 11:26] LABS: Influenza A Negative (Negative); Influenza B2 Negative (Negative)
--- NOTE | 2024-02-23 12:17 | ED.ASTHMA ---
HPI - Asthma General Chief Complaint: Dyspnea Stated Complaint: asthma Time Seen by Provider: 02/23/24 12:08 Source: patient and old records reviewed Mode of arrival: ambulatory Limitations: no limitations History of Present Illness ED Provider: BRYAN MORAN Narrative: 43 yo female with PMH of asthma here with 3 days of exacerbation with wheezing coughing has only a little bit of INH left. No prednisone for asthma in 2 years, last admission but no intubation 2 years ago. No fevers, unsure of trigger. MD complaint: asthma attack , shortness of breath and wheezing Onset (ago): day(s) (3) Severity: moderate Context: none known Associated symptoms: dry cough Asthma History: childhood onset Treatments Prior to Arrival: other (inhalers) Related Data Home Medications ?Medication ?Instructions ?Recorded ?Confirmed albuterol sulfate 90 mcg/actuation 1 puff PO Q4H PRN wheezing 12/09/21 12/09/21 aerosol inhaler (ProAir HFA) fluoxetine 20 mg capsule 2 cap PO DAILY 12/09/21 12/09/21 trazodone 50 mg tablet 1 tab PO BEDTIME 12/09/21 12/09/21 Previous Rx's ?Medication ?Instructions ?Recorded ibuprofen 600 mg tablet 600 mg PO TID PRN pain #20 tabs 10/20/21 morphine 15 mg tablet,extended 15 mg PO Q12H 3 days #6 tabs 12/14/21 release (MS Contin) naproxen 500 mg tablet 500 mg PO BID 3 weeks #42 tabs 12/14/21 oxycodone-acetaminophen 5 mg-325 1 tab PO Q4-6H PRN pain 7 days #42 12/14/21 mg tablet (Percocet) tabs hydrocodone 5 mg-acetaminophen 325 1 tab PO Q4-6H PRN pain 7 days #42 12/20/21 mg tablet tabs ondansetron HCl 4 mg tablet 4 mg PO Q6H PRN nausea and 12/20/21 vomiting 7 days #28 tabs naproxen 500 mg tablet 500 mg PO Q8-12H PRN pain (scale 10/29/23 score 4-6) #20 tabs oxycodone 5 mg capsule 5 mg PO Q8H PRN pain (scale score 10/29/23 7-10) #4 caps prednisone 50 mg tablet 50 mg PO DAILY 5 days #5 tabs 10/29/23 albuterol sulfate 2.5 mg/3 mL 2.5 mg (3 mL) inhalation Q4-6H PRN 02/23/24 (0.083 %) solution for nebulization bronchospasm #75 mL albuterol sulfate 90 mcg/actuation 2 puff inhalation QID PRN 02/23/24 aerosol inhaler shortness of breath or wheezing #6.7 grams prednisone 20 mg tablet 40 mg (2 x 20 mg) PO DAILY 5 days 02/23/24 #10 tabs Allergies Allergy/AdvReac Type Severity Reaction Status Date / Time No Known Allergies Allergy Verified 02/23/24 10:40 Review of Systems Review of Systems: Constitutional : No Fever, No Chills ENT/Mouth : No Hoarseness, No sore throat, No Rhinorrhea Eyes: No Redness, No Discharge, No Vision Changes Cardiovascular : No Chest Pain, positive SOB, positive Dyspnea on Exertion, No Edema Respiratory : positive Cough, No Sputum, positive Wheezing, Gastrointestinal : No Nausea, No Vomiting, No Diarrhea, No abdominal Pain Genitourinary : No Dysuria, No Hematuria Musculoskeletal : No joint pain, No Myalgias Skin : No rash Neuro : No Weakness, No Numbness, No Headache Psych : No anxiety, depression Heme/Lymph: No Bruising, No Bleeding Endocrine : No Polyuria, No Polydipsia All other systems reviewed and are negative [facility] Past Medical History Attestation statement: The following information was validated with the patient. 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 Oriented X3. No acute distress. Eyes: Pupils equal, round and reactive to light. ENT: Pharynx normal. Neck: Normal inspection. Neck supple. CVS: Normal heart rate and rhythm. Pulses normal. Respiratory: No respiratory distress. Breath sounds mild diffuse insp and exp wheezes Abdomen: Soft and nontender. Skin: Skin warm and dry. Normal skin color. Normal skin turgor. Extremities: No lower extremity edema. No calf ttp Neuro: Oriented X 3. No motor deficit. No sensory deficit. Medications Administered Discontinued Medications Generic Name Dose Route Start Last Admin Trade Name Freq PRN Reason Stop Dose Admin Albuterol Sulfate 2.5 mg/ 0 mg 02/23/24 12:54 02/23/24 12:59 Albuterol/Ipratropium 3 ml INHALE 02/23/24 12:55 5 dose ONCE ONE Administration Prednisone 60 mg 02/23/24 12:16 02/23/24 12:47 Prednisone 20 Mg Tablet PO 02/23/24 12:17 60 mg ONCE ONE Administration Medical Decision Making Medical Decision Making [facility] Narrative: 43 yo female with PMH of asthma here with wheezing dyspnea and dry cough no fevers x 3 days she is not toxic no distress will give PO prednisone neb treatment and reassess. Differential Diagnosis Differential Diagnoses: The differential diagnosis associated with the presentation includes asthma URI Admission/Observation Consideration of admission/observation: Escalation of care including admission/observation considered no hypoxia improved stable for DC Lab Data [facility] Lab Attestation statement: I reviewed the patient's lab results. Labs: Lab Results 02/23/24 Range/Units 10:44 COVID-19 (TONY) Negative (Negative) COVID-19 Clin Com See Note Influenza Type A (SUNITA) Negative (Negative) Influenza Type B (SUNITA) Negative (Negative) Influenza A & B Note See Note Independent Interpretation I performed an independent interpretation of an: Plain X-Ray (no pneumonia) Radiology Impression Discussion of test interpretation with radiology: I have reviewed the radiologist's reading. External Record Review External record reviewed: Inpatient record Prescription Management I considered prescription management with: Other Discharge Plan Discharge Clinical Impression: Asthma with exacerbation Qualifiers: Asthma severity: moderate Asthma persistence: persistent Qualified Code(s): J45.41 - Moderate persistent asthma with (acute) exacerbation Patient Disposition: Home, Self-Care Instructions: Asthma (ED), Wheezing (ED) Additional Instructions: negative swabs, chest xray normal return for any worsening symptoms or concerns Prescriptions: New albuterol sulfate 2.5 mg /3 mL (0.083 %) solution for nebulization 2.5 mg inhalation Q4-6H PRN (Reason: bronchospasm) Qty: 75 0RF prednisone 20 mg tablet 40 mg PO DAILY 5 Days Qty: 10 0RF albuterol sulfate 90 mcg/actuation HFA aerosol inhaler 2 puff inhalation QID PRN (Reason: shortness of breath or wheezing) Qty: 6.7 2RF No Action ibuprofen 600 mg tablet 600 mg PO TID PRN (Reason: pain) Qty: 20 0RF trazodone 50 mg tablet 1 tab PO BEDTIME albuterol sulfate [ProAir HFA] 90 mcg/actuation HFA aerosol inhaler 1 puff PO Q4H PRN (Reason: wheezing) fluoxetine 20 mg capsule 2 cap PO DAILY oxycodone-acetaminophen [Percocet] 5-325 mg tablet 1 tab PO Q4-6H PRN (Reason: pain) 7 Days Qty: 42 0RF morphine [MS Contin] 15 mg tablet extended release 15 mg PO Q12H 3 Days Qty: 6 0RF Rx Instructions: Partial Fill upon patient request naproxen 500 mg tablet 500 mg PO BID 21 Days Qty: 42 1RF prednisone 50 mg tablet 50 mg PO DAILY 5 Days Qty: 5 0RF naproxen 500 mg tablet 500 mg PO Q8-12H PRN (Reason: pain (scale score 4-6)) Qty: 20 0RF oxycodone 5 mg capsule 5 mg PO Q8H PRN (Reason: pain (scale score 7-10)) Qty: 4 0RF Rx Instructions: Partial Fill upon patient request. ondansetron HCl 4 mg tablet 4 mg PO Q6H PRN (Reason: nausea and vomiting) 7 Days Qty: 28 0RF hydrocodone-acetaminophen 5-325 mg tablet 1 tab PO Q4-6H PRN (Reason: pain) 7 Days Qty: 42 0RF Rx Instructions: Partial Fill upon patient request. Stand Alone Forms: Work/School Release Print Language: Albanian
[2024-02-23 12:25] VITALS: BP 147/85; PULSE 74; RESP 18; O2SAT 98
[2024-02-23] MEDS: predniSONE 20 MG TABLET 60 MG PO (12:47)
[2024-02-23 12:59] VITALS: PULSE 78; RESP 21; O2SAT 99
[2024-02-23] MEDS: Albuterol Sulfate 2.5 MG, Albuterol/Iprat 2.5/0.5MG 3 ML 3 ML INHALE (12:59)
[2024-02-23 14:49] VITALS: BP 131/95; PULSE 92; RESP 18; TEMP 36.4; O2SAT 100
== END 2024-02-23 14:50 | disposition home or self-care (01) ==
PROVIDERS: Emergency Provider Emergency Medicine
DX: J45.41 Moderate persistent asthma with (acute) exacerbation (principal); Z11.52 Encounter for screening for COVID-19
CPT/HCPCS: 71045; 87502; 87635; 94640; 99284

== ENCOUNTER 2024-07-28 13:57 | Emergency (ER) | payer MEDICAID, SELFPAY ==
--- NOTE | ~2024-07-28 | XR_ITS ---
EXAMINATION: XR FOOT, RIGHT CLINICAL INFORMATION: Pain, deformity of the pinky toe COMPARISON: None available. TECHNIQUE: AP, lateral, and oblique views of the right foot. FINDINGS: The bones and soft tissues are normal. No fracture. Alignment is anatomic. Joint spaces are maintained. XR/XR foot RT 2V IMPRESSION: Normal right foot. Electronically signed by: Jessy Helm MD 07/28/2024 05:52 PM EST
--- NOTE | ~2024-07-28 | XR_ITS ---
EXAMINATION: XR FOOT, LEFT CLINICAL INFORMATION: Deformity of the pinky toe COMPARISON: None available. TECHNIQUE: AP, lateral, and oblique views of the left foot. FINDINGS: The bones and soft tissues are normal. No fracture. Alignment is anatomic. Joint spaces are maintained. XR/XR foot LT 2V IMPRESSION: Normal left foot. Electronically signed by: Jessy Helm MD 07/28/2024 05:52 PM EST
[2024-07-28 14:00] VITALS: BP 160/104; PULSE 99; RESP 16; TEMP 36.6; O2SAT 98; BMI 24.9
--- NOTE | 2024-07-28 14:00 | ED_ITS ---
HPI - General Adult General Chief complaint: Chest Pain Stated complaint: HBP/swollen toes Time Seen by Provider: 07/28/24 16:28 Source: patient Limitations: no limitations History of Present Illness ED Provider: La Stevens PA-C HPI narrative: Patient is a 44y female who presents with worsening b/l foot pain x3 days. She states her toes are swollen and feel tight as if there's built up pressure in her feet. The left hurts more than the right and rated it 10/10 pain. She mentions her veins being more noticeable when this occurs. She also mentions that when it happens, she has decreased sensation as well as numbness and tingling in her toes and feet. This has been happening on and off for a few months and lasts for a few days each time. She also mentions that when she arrived, she had chest pain and high BP. The pain has subsided since her BP has decreased, and she thinks the pain was due to being nervous about her BP. She does not currently take BP medication. She mentions having a history of cirrhosis. Patient denies current chest pain, SOB, recent surgery, new rashes, and history of blood clots. Related Data Home Medications ?Medication ?Instructions ?Recorded ?Confirmed albuterol sulfate 90 mcg/actuation 1 puff PO Q4H PRN wheezing 12/09/21 12/09/21 aerosol inhaler (ProAir HFA) fluoxetine 20 mg capsule 2 cap PO DAILY 12/09/21 12/09/21 trazodone 50 mg tablet 1 tab PO BEDTIME 12/09/21 12/09/21 Previous Rx's ?Medication ?Instructions ?Recorded ibuprofen 600 mg tablet 600 mg PO TID PRN pain #20 tabs 10/20/21 morphine 15 mg tablet,extended 15 mg PO Q12H 3 days #6 tabs 12/14/21 release (MS Contin) naproxen 500 mg tablet 500 mg PO BID 3 weeks #42 tabs 12/14/21 oxycodone-acetaminophen 5 mg-325 1 tab PO Q4-6H PRN pain 7 days #42 12/14/21 mg tablet (Percocet) tabs hydrocodone 5 mg-acetaminophen 325 1 tab PO Q4-6H PRN pain 7 days #42 12/20/21 mg tablet tabs ondansetron HCl 4 mg tablet 4 mg PO Q6H PRN nausea and 12/20/21 vomiting 7 days #28 tabs naproxen 500 mg tablet 500 mg PO Q8-12H PRN pain (scale 10/29/23 score 4-6) #20 tabs oxycodone 5 mg capsule 5 mg PO Q8H PRN pain (scale score 10/29/23 7-10) #4 caps prednisone 50 mg tablet 50 mg PO DAILY 5 days #5 tabs 10/29/23 albuterol sulfate 2.5 mg/3 mL 2.5 mg (3 mL) inhalation Q4-6H PRN 02/23/24 (0.083 %) solution for nebulization bronchospasm #75 mL albuterol sulfate 90 mcg/actuation 2 puff inhalation QID PRN 02/23/24 aerosol inhaler shortness of breath or wheezing #6.7 grams prednisone 20 mg tablet 40 mg (2 x 20 mg) PO DAILY 5 days 02/23/24 #10 tabs Allergies Allergy/AdvReac Type Severity Reaction Status Date / Time No Known Allergies Allergy Verified 07/28/24 14:03 Review of Systems 2 Review of Systems: Yes all other systems are reviewed and are negative Constitutional: Constitutional: Denies chills, Denies fatigue, Denies fever(s), Denies headache(s) and Denies weakness Eyes: Eyes: Denies change in vision ENT: Denies dizziness and Denies headache(s) Cardiovascular: Cardiovascular: Denies Abdominal Distension, Denies chest pain, Reports pedal edema, Reports claudication, Denies leg ulcers, Reports leg edema, Denies palpitations and Denies dyspnea Respiratory: Respiratory: Denies cough and Denies dyspnea Gastrointestinal: Gastrointestinal: Denies abdominal pain, Denies bloating, Denies constipation, Denies diarrhea, Denies nausea and Denies vomiting Genitourinary: Genitourinary: Denies hematuria, Denies dysuria and Denies urinary urgency Musculoskeletal: Musculoskeletal: Denies arthralgias, Denies joint swelling, Reports numbness (in feet) and Reports tingling (in feet) Integumentary/Breasts: Skin/Breast: Denies lesions and Denies rash Neurologic: Denies dizziness, Denies headache(s), Reports numbness (in feet), Denies radicular pain, Denies restless legs, Reports tingling (in feet) and Denies weakness Psychiatric: Psychiatric: Denies homicidal ideation and Denies suicidal ideation Endocrine: Endocrine: Denies fatigue and Denies palpitations [facility] Past Medical History Attestation statement: The following information was validated with the patient. Medical History Anxiety Asthma Surgical History Hx of cholecystectomy Social History Social History Are you a primary early breastfeeding care specialist to a significant other at home: No Do you presently have visiting nurse or other home services: No Alcohol intake: current Alcohol intake frequency: holidays/special occasions only Patient Tobacco Use Status: Never used Tobacco Smoked in Last 30 Days: No Use of substances other than those prescribed or required for medical reasons: No Substance Use Type: Marijuana Advance Directives: No Advance Directives Information Provided: No Do you have a plan to hurt others: No Plan Current occupational status: employed 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 Physical Exam ED Vital Signs: Vital Signs - 24 hr 07/28/24 14:00 07/28/24 16:04 Temperature 97.8 F Pulse Rate 99 85 Respiratory Rate 16 15 Blood Pressure 160/104 H 132/92 H Pulse Oximetry 98 99 Oxygen Delivery Method Room Air Room Air BMI result Body Mass Index 24.9 Const General: cooperative, healthy appearing, comfortable and no acute distress Nutritional Appearance: average body habitus Orientation/consciousness: patient oriented x3 Limitations: no limitations Eyes General: appearance normal, both eyes and all related structures Visual Castro: normal visual castro by confrontation Alignment and Position: alignment normal and position normal Periorbital: periorbital findings normal Eyelids: Yes eyelids normal Conjunctivae: conjunctivae normal Sclerae: sclerae normal Corneas: corneas normal Pupils: Equal, round and reactive pupils present and Pupils normal by confrontation EOM: EOMs intact bilaterally Neck Neck: Yes normal visual inspection, Yes full ROM and Yes no meningeal signs Resp Effort & Inspection: normal respiratory effort and able to speak in complete sentences Auscultation: clear to auscultation bilaterally, no rales, no rhonchi and no wheezes Cardio Jugular venous distension: no JVD Rate: regular rate Rhythm: regular rhythm Heart sounds: S1 normal heart sound present and S2 normal heart sound present Peripheral pulses: popliteal pulses present, posterior tibial pulses present and dorsalis pedis present on the left diminished GI Inspection: Yes normal to inspection, No Abdominal wall edema, No distended and No caput medusae present Palpation (GI): Soft to palpation, no hepatomegaly, no splenomegaly and No Ascites present Percussion: No Fluid wave present Skin General skin exam: no rashes or lesions noted, elasticity normal, turgor normal and no jaundice Rashes: no rashes Wounds: no wounds Hair: normal Nails: normal Neuro General: patient oriented x3, moves all extremities, no meningeal signs, no focal motor deficits and CN's II-XI intact bilaterally Cranial nerves: Yes CN's II-XII intact bilaterally, Yes Equal, round and reactive pupils present and Yes Bilaterally intact EOM present Cognition (Neuro): normal cognition Extrem General: Yes full ROM, Yes capillary refill normal, Yes no joint enlargement and Yes no clubbing, cyanosis or edema Right upper extremity: normal to inspection Left upper extremity: normal to inspection Right lower extremity: normal capillary refill, lower leg Details: tenderness and no edema; no erythema, no abrasions and no unusual warmth and foot Details: toes with normal ROM and vascular exam Details: normal capillary refill; not cool and no cyanosis; no unusual warmth, no edema and no puncture wound; no cyanosis and no edema Left lower extremity: normal capillary refill, lower leg (varicose veins ) Details: tenderness and no edema; no erythema, no abrasions and no unusual warmth and foot Details: tenderness and vascular exam (DP pulse diminished ) Details: normal capillary refill; not cool and no cyanosis; no unusual warmth, no edema and no abrasions; no cyanosis and no edema Psych Other: calm and cooperative Appearance: grossly normal Mental Status: mental status grossly normal Speech and movement: Normal speech and movement present and Clear speech present Affect: normal affect Attitude: cooperative Thought process: Normal thought process present Thought content: Normal thought content present Insight: Good insight present (Psych) Judgement: Good judgement present (Psych) Course Course Course Narrative: This is an RME: Additional HPI, ROS, PE not included below will be deferred to primary provider. RME assessment and note performed by: Shannen Stearns, PA-C This is a [id number]-female, with a hx of asthma, who presents to the ER with complaints of chest pain, SOB, and BL lower leg pain x 2-3 days. CP is intermittent. Plan: Labs, EKG, CXR, US Medications Administered Discontinued Medications Generic Name Dose Route Start Last Admin Trade Name Luis PRN Reason Stop Dose Admin Acetaminophen 975 mg 07/28/24 17:24 07/28/24 17:44 Acetaminophen 325 Mg Tablet PO 07/28/24 17:25 975 mg ONCE ONE Administration Ibuprofen 600 mg 07/28/24 17:24 07/28/24 17:44 Ibuprofen 600 Mg Tablet PO 07/28/24 17:25 600 mg ONCE ONE Administration Medical Decision Making Medical Decision Making [facility] Narrative: I La Stevens PA-C have personally assessed and manage the patient, Viktoria HARRINGTON observed and helped to formulate the note Patient is a 44y female who presents with worsening b/l foot pain x3 days. She states her toes are swollen and feel tight as if there's built up pressure in her feet. The left hurts more than the right and rated it 10/10 pain. She mentions her veins being more noticeable when this occurs. She also mentions that when it happens, she has decreased sensation as well as numbness and tingling in her toes and feet. This has been happening on and off for a few months and lasts for a few days each time. She also mentions that when she arrived, she had chest pain and high BP. The pain has subsided since her BP has decreased, and she thinks the pain was due to being nervous about her BP. She does not currently take BP medication. She mentions having a history of cirrhosis. Patient denies current chest pain, SOB, recent surgery, new rashes, and history of blood clots. Patient has a PMH of left ACL repair and cirrhosis. DDx: varicose veins, chronic venous insufficiency, DVT, HF, liver disease, cellulitis, ACS, gout, , electrolyte abnormality Plan: Given the normal aging process and patient not wearing compression stockings, the cause of her symptoms could be varicose veins. The varicose veins could be due to chronic venous insufficiency, which could be due to her possibly uncontrolled hypertension, gender, age, and previous leg injury, CVI could be the cause. Will rule out other possible causes first. Electrolyte abnormality was considered as the patient has bilateral leg pains and initially c/o chest pain, however electrolyte values were WNL. Will rule out other causes. As the patient states she has a history of cirrhosis, and this can affect blood circulation, cause coagulation issues, and fluid retention, this could be the cause of her symptoms. However, patient has no objective signs of edema or cyanosis on exam, as well as no hx portal HTN, therefore rendering this diagnosis unlikely as well. Given that her she has no objective signs of heart failure, such as bilateral lower extremity edema, JVD, and SOB, I do not believe that the cause of her symptoms are from heart failure. Her BNP was also 58, making this diagnosis not likely. Due to these reasons and her normal EKG, I also believe ACS to be unlikely. As the patient has had no recent injury to the area, her pain/swelling is bilateral, no erythema was present, and there was no leukocytosis on labs, I do not believe the patient has cellulitis. Also given that the swelling/pain is bilateral, there was no SOB, and there is no edema or erythema on exam, DVT is unlikely. Patient's test was negative, therefore her symptoms are not due to . Gout was considered, but given that inflammatory markers are negative and no tophi was noted on physical exam, this diagnosis is unlikely. per La Stevens PA-C At the end of the day, the patient is here for bilateral toe pain, exclusive to the 5th digit on each foot. The patient has had symptoms for months, unclear why she is here today. She has calluses, this would not cause discomfort, I can feel subtle prominence over each pinky toe, perhaps she is developing arthritis or bunion, we will obtain foot x-rays. Screening labs including cardiac enzyme inflammatory markers EKG were obtained from triage given her numerous complaints. I am in agreement, this is not HF, this is not ACS. I have independently reviewed the following tests: Labs: No leukocytosis, not anemic, not , no electrolyte abnormality, troponin negative, BNP 58, CRP and ESR not elevated EKG: Sinus rhythm, rate 85, no ischemic changes no ectopy Left foot x-ray: XR/XR foot LT 2V IMPRESSION: Normal left foot. Electronically signed by: Jessy Helm MD 07/28/2024 05:52 PM EST RP Right foot x-ray: XR/XR foot RT 2V IMPRESSION: Normal right foot. Electronically signed by: Jessy Helm MD 07/28/2024 05:52 PM EST RP Lab Data 07/28/24 14:15 07/28/24 14:15 Labs: Lab Results 07/28/24 Range/Units 14:15 WBC 9.6 (4.8-10.8) X10*3/uL RBC 4.75 (4.20-5.50) X10*6/uL Hgb 13.8 (12.0-16.0) g/dl Hct 40.7 (37.0-47.0) % MCV 85.7 (80.0-98.0) fL MCH 29.1 (27.0-33.0) pg MCHC 33.9 (31.0-35.0) g/dl RDW 13.1 (11.0-16.0) % Plt Count 298 (160-400) X10*3/uL MPV 9.1 L (9.4-12.3) fL Immature Gran % (Auto) 0.2 (0.0-0.4) % Neut % (Auto) 57.4 (45-73) % Lymph % (Auto) 35.4 (20-40) % [place] % (Auto) 6.2 (2-11) % Eos % (Auto) 0.3 (0-4) % Baso % (Auto) 0.5 (0-2) % Lymph # (Auto) 3.4 (1.2-4.9) X10*3/uL [place] # (Auto) 0.6 (0.1-1.2) X10*3/uL Eos # (Auto) 0.0 (0.0-0.4) X10*3/uL Baso # (Auto) 0.1 (0.0-0.2) X10*3/uL Abs Immat Gran (auto) 0.02 (0.00-0.03) X10*3/uL Absolute Neuts (auto) 5.5 (2.0-8.3) x10*3/uL Absolute Nucleated RBC 0.000 (0.0-0.012) X10*3/uL Nucleated RBC % (auto) 0.0 (0.0-0.2) /100WBC ESR 2 (0-20) MM/HR PT 10.3 L (10.9-12.4) SEC INR 0.9 (0.9-1.1) Sodium 138 (135-145) mmol/L Potassium 3.9 (3.3-5.1) mmol/L Chloride 107 (96-108) mmol/L Carbon Dioxide 22 (22-29) mmol/L Anion Gap 13 (12-20) BUN 12 (9-16) mg/dL Creatinine 0.87 (0.5-1.4) mg/dL Estim Creat Clear Calc 71.3 Estimated GFR > 60 Random Glucose 122 H (60-115) mg/dL Calcium 9.2 (8.4-10.2) mg/dL Magnesium 2.0 (1.6-2.6) mg/dL Total Bilirubin 0.9 (0.0-1.0) mg/dL Direct Bilirubin 0.3 (0.0-0.5) mg/dL AST 33 H (5-31) U/L ALT 27 (0-31) U/L Alkaline Phosphatase 84 (39-117) U/L Troponin I High Sens < 2.7 (<3.5-17.0) ng/L C-Reactive Protein 0.13 (< or = 0.50) mg/dL B-Natriuretic Peptide 58 (<100) pg/mL Total Protein 7.0 (6.5-8.0) g/dL Albumin 4.0 (3.5-5.0) g/dL Beta HCG, Quant < 2 mIU/mL Discharge Plan Discharge Clinical Impression: Callus of toe, Chest pain, Hypertension Patient Disposition: Home, Self-Care Instructions: Noncardiac Chest Pain (ED), Hypertension (ED) Additional Instructions: All of your screening labs including a cardiac enzymes were normal. There were no concerning changes on your EKG. Your blood pressure is subtly elevated here, you may be developing hypertension. You need to follow up with your primary care provider for further assessment, they may place you on medication. In regard to your toe pain, your x-rays were unremarkable. From what I can see, you have developed calluses on multiple toes, this is typically from improper fit of footwear. You can follow up with the blasting entry specialist of your choosing. You can use [id number] ibuprofen 600 mg taken every 6 hours with food, alternated with [id number] Tylenol 1000 mg taken every 8 hours, for your pain. There was no evidence of infection over any of the toes. Prescriptions: No Action ibuprofen 600 mg tablet 600 mg PO TID PRN (Reason: pain) Qty: 20 0RF trazodone 50 mg tablet 1 tab PO BEDTIME albuterol sulfate [ProAir HFA] 90 mcg/actuation HFA aerosol inhaler 1 puff PO Q4H PRN (Reason: wheezing) fluoxetine 20 mg capsule 2 cap PO DAILY oxycodone-acetaminophen [Percocet] 5-325 mg tablet 1 tab PO Q4-6H PRN (Reason: pain) 7 Days Qty: 42 0RF morphine [MS Contin] 15 mg tablet extended release 15 mg PO Q12H 3 Days Qty: 6 0RF Rx Instructions: Partial Fill upon patient request naproxen 500 mg tablet 500 mg PO BID 21 Days Qty: 42 1RF prednisone 50 mg tablet 50 mg PO DAILY 5 Days Qty: 5 0RF naproxen 500 mg tablet 500 mg PO Q8-12H PRN (Reason: pain (scale score 4-6)) Qty: 20 0RF oxycodone 5 mg capsule 5 mg PO Q8H PRN (Reason: pain (scale score 7-10)) Qty: 4 0RF Rx Instructions: Partial Fill upon patient request. albuterol sulfate 2.5 mg /3 mL (0.083 %) solution for nebulization 2.5 mg inhalation Q4-6H PRN (Reason: bronchospasm) Qty: 75 0RF prednisone 20 mg tablet 40 mg PO DAILY 5 Days Qty: 10 0RF albuterol sulfate 90 mcg/actuation HFA aerosol inhaler 2 puff inhalation QID PRN (Reason: shortness of breath or wheezing) Qty: 6.7 2RF ondansetron HCl 4 mg tablet 4 mg PO Q6H PRN (Reason: nausea and vomiting) 7 Days Qty: 28 0RF hydrocodone-acetaminophen 5-325 mg tablet 1 tab PO Q4-6H PRN (Reason: pain) 7 Days Qty: 42 0RF Rx Instructions: Partial Fill upon patient request. Print Language: Taiwanese
--- NOTE | 2024-07-28 14:04 | ECG_ITS ---
Test Reason : CHEST PAIN Blood Pressure : / mmHG Vent. Rate : 085 BPM Atrial Rate : 085 BPM P-R Int : 106 ms QRS Dur : 090 ms QT Int : 398 ms P-R-T Axes : 040 026 042 degrees QTc Int : 473 ms Sinus rhythm with short HI Minimal voltage criteria for LVH, may be normal variant ( Tristan product ) Abnormal ECG No previous ECGs available Referred By: Shannen Stearns Electronically Signed By:JUSTINO ZUNIGA
[2024-07-28 14:22] LABS: MANUAL DIFF FLAG NO
[2024-07-28 14:26] LABS: Basophils Absolute Auto 0.1 X10*3/uL (0.0-0.2); Basophils Percent Auto 0.5 % (0-2); Eosinophils Percent Auto 0.3 % (0-4); Hematocrit 40.7 % (37.0-47.0); Hemoglobin 13.8 g/dl (12.0-16.0); Imm Gran Abs Auto 0.02 X10*3/uL (0.00-0.03); Imm Gran Pct Auto 0.2 % (0.0-0.4); Lymphocytes Absolute Auto 3.4 X10*3/uL (1.2-4.9); Lymphocytes Percent Auto 35.4 % (20-40); Mean Corpuscular HGB Conc 33.9 g/dl (31.0-35.0); Mean Corpuscular Hemoglobin 29.1 pg (27.0-33.0); Mean Corpuscular Volume 85.7 fL (80.0-98.0); Mean Platelet Volume 9.1 fL (9.4-12.3); Monocytes Absolute Auto 0.6 X10*3/uL (0.1-1.2); Monocytes Percent Auto 6.2 % (2-11); Neutrophils Absolute Auto 5.5 x10*3/uL (2.0-8.3); Neutrophils Percent Auto 57.4 % (45-73); Platelet Count 298 X10*3/uL (160-400); Red Blood Count 4.75 X10*6/uL (4.20-5.50); Red Cell Distribution Width 13.1 % (11.0-16.0); White Blood Count 9.6 X10*3/uL (4.8-10.8)
[2024-07-28 14:29] LABS: INTERNATIONAL NORM RATIO 0.9 (0.9-1.1); Prothrombin Time 10.3 SEC (10.9-12.4)
[2024-07-28 14:50] LABS: B Type Natriuretic Peptide 58 pg/mL (<100)
[2024-07-28 14:55] LABS: Alanine Aminotransferase 27 U/L (0-31); Alkaline Phosphatase 84 U/L (39-117); Anion Gap 13 (12-20); Aspartate Amino Transferase 33 U/L (5-31); Bilirubin Direct 0.3 mg/dL (0.0-0.5); Bilirubin Total 0.9 mg/dL (0.0-1.0); Blood Urea Nitrogen 12 mg/dL (9-16); C Reactive Protein 0.13 mg/dL (< or = 0.50); Calcium 9.2 mg/dL (8.4-10.2); Carbon Dioxide 22 mmol/L (22-29); Chloride 107 mmol/L (96-108); Creatinine Clr Calc Pharmacy 71.3; Estimated Glomerular Filt Rate > 60; Glucose Random 122 mg/dL (60-115); HCG Quantitative < 2 mIU/mL; Potassium 3.9 mmol/L (3.3-5.1); Sodium 138 mmol/L (135-145); Troponin-I High Sensitivity < 2.7 ng/L (<3.5-17.0)
[2024-07-28 15:08] LABS: Erythrocyte Sedimentation Rate 2 MM/HR (0-20)
[2024-07-28 16:04] VITALS: BP 132/92; PULSE 85; RESP 15; O2SAT 99
[2024-07-28] MEDS: Acetaminophen 325 MG TABLET 975 MG PO (17:44)
[2024-07-28] MEDS: Ibuprofen 600 MG TABLET PO (17:44)
[2024-07-28 18:12] VITALS: BP 145/83; PULSE 83; RESP 19; TEMP 36.6; O2SAT 99
[2024-07-28 19:08] VITALS: BP 145/83; PULSE 83; RESP 19; TEMP 36.6; O2SAT 99
== END 2024-07-28 19:08 | disposition home or self-care (01) ==
PROVIDERS: Physician Assistant Medical; Emergency Provider Emergency Medicine Emergency Medical Services
DX: L84 Corns and callosities (principal); R07.89 Other chest pain; R06.02 Shortness of breath; R94.31 Abnormal electrocardiogram [ECG] [EKG]; I10 Essential (primary) hypertension; M79.672 Pain in left foot; M79.671 Pain in right foot; Z79.899 Other long term (current) drug therapy
CPT/HCPCS: 36415; 73620; 80048; 80076; 83735; 83880; 84484; 84702; 85025; 85610; 85652; 86140; 93005; 99284; 99285

== ENCOUNTER → 2024-07-28 14:04 | Outpatient (BNV) | payer OTHER, SELFPAY | PROVIDERS: Visit Provider Internal Medicine | DX: R94.31 Abnormal electrocardiogram [ECG] [EKG] (principal) | CPT/HCPCS: 93010 ==